=== PATIENT | male | born 1985 | race Caucasian/White ===

== ENCOUNTER 2022-10-25 23:06 | Emergency (ER) | payer OTHER, SELFPAY ==
[2022-10-25 23:09] VITALS: BP 129/83; PULSE 93; RESP 13; TEMP 36.5; O2SAT 95
--- NOTE | 2022-10-25 23:14 | ED.ALCOHOL ---
HPI - Alcohol General Chief Complaint: Overdose Stated Complaint: Possible Overdose Source: patient, EMS and RN notes reviewed Mode of arrival: EMS Limitations: no limitations History of Present Illness HPI narrative: Patient states he had been drinking and then decided he wanted to get high smokes some marijuana but thinks that may have been meth placed in it. Apparently law enforcement gave him some Narcan with no response. complaint: alcohol intoxication Last drink: just GREASE MAN Related Data Home Medications Medication Instructions Recorded Confirmed No Home Medications 10/26/22 10/26/22 Allergies Allergy/AdvReac Type Severity Reaction Status Date / Time No Known Allergies Allergy Verified 10/25/22 23:14 Review of Systems Review of Systems: ROS unobtainable: Yes unobtainable due to medical condition PMFSH Past Medical History Medical History Bipolar disorder (11/21/16) Social History Social History Smoking status: Current every day smoker Exam Const: General: healthy appearing and ill appearing acutely Nutritional Appearance: well nourished Limitations: altered mental status ( Appears intoxicated) HENMT: Head: normal to inspection Ears: external ears normal Face/Nose/Sinus: Normal external nose present Face and sinus: normal facial exam Mouth: Yes moist mucous membranes Eyes: Conjunctivae: conjunctivae normal Pupils: Equal, round and reactive pupils present EOM: EOMs intact bilaterally Neck: Neck: normal visual inspection Resp: Effort & Inspection: normal respiratory effort Auscultation: clear to auscultation bilaterally Cardio: Rate: regular rate Rhythm: regular rhythm GI: GI Palp: Yes Soft to palpation and No Tenderness to palpation present (GI) Auscultation: normal bowel sounds Back/Spine/Pelvis: Cervical Spine: cervical ROM normal Thoracic/Lumbar Spine: thoraco-lumbar ROM normal Skin: General skin exam: normal color Rashes: no rashes Neuro: General: moves all extremities, no focal motor deficits and CN's II-XI intact bilaterally Speech: Abnormal speech present ( intoxicated) Details: slurred Extrem: General: normal to inspection and no clubbing, cyanosis or edema Psych: Attitude: cooperative Course Course Emergency Course: patient temporarily eloped and the police were called due to him being intoxicated in unsafe to be walking the streets in the middle of the night. He was eventually found brought back by police. Family is now willing to take him home. Vital Signs Vital signs: Vital Signs Temperature 36.5 C 10/25/22 23:09 Pulse Rate 93 10/25/22 23:09 Respiratory Rate 13 10/25/22 23:09 Blood Pressure 129/83 10/25/22 23:09 Pulse Oximetry 95 10/25/22 23:09 Oxygen Delivery Room Air 10/25/22 23:09 Temperature 36.5 C 10/25/22 23:09 Pulse Rate 84 10/26/22 00:33 Respiratory Rate 18 10/26/22 00:33 Blood Pressure 109/74 10/26/22 00:33 Pulse Oximetry 98 10/26/22 00:33 Oxygen Delivery Room Air 10/25/22 23:09 MDM - Alcohol Differential Diagnosis Differential diagnosis: Likely alcohol intoxication, alcohol withdrawal syndrome and other ( anemia, electrolyte abnormalities, drug abuse) Lab Data Attestation: I reviewed the patient's lab results. 10/25/22 23:35 10/25/22 23:35 Labs: Lab Results 10/25/22 10/25/22 Range/Units 00:07 23:35 WBC 15.9 H (4.8-10.8) K/mm3 RBC 4.54 L (4.70-6.10) M/mm3 Hgb 15.2 (14.0-18.0) g/dL Hct 44.5 (40.0-54.0) % MCV 98.0 (78.0-102.0) fL MCH 33.5 H (27.0-31.0) pg MCHC 34.2 (32.0-36.0) g/dL RDW 12.9 (11.6-14.4) % Plt Count 439 H (150-420) K/mm3 MPV 8.4 L (8.7-11.0) fl Immature Gran % (Auto) 0.5 H (0.0-0.0) % Neut % (Auto) 76.1 H (50.0-70.0) % Lymph % (Auto) 14.7 L (18.0-42.0) % [place] % (Auto) 7.2 (2.0-1
[2022-10-25 23:25] VITALS: RESP 16
--- NOTE | 2022-10-25 23:27 | PC.NURSE ---
Pt grandmother at bedside
[2022-10-25 23:30] VITALS: PULSE 98; RESP 18; O2SAT 95
[2022-10-25 23:42] LABS: Basophils Absolute Auto 0.06 K/mm3 (0.00-0.10); Basophils Percent Auto 0.4 % (0.0-1.0); Eosinophils Absolute Auto 0.18 K/mm3 (0.02-0.50); Eosinophils Percent Auto 1.1 % (1.0-6.0); Hematocrit 44.5 % (40.0-54.0); Hemoglobin 15.2 g/dL (14.0-18.0); Immature Granulocyte Absolute 0.08 K/mm3 (0.00-0.00); Immature Granulocyte Percent A 0.5 % (0.0-0.0); Lymphocytes Absolute Auto 2.34 K/mm3 (1.10-4.50); Lymphocytes Percent Auto 14.7 % (18.0-42.0); Mean Corpuscular HGB Conc 34.2 g/dL (32.0-36.0); Mean Corpuscular Hemoglobin 33.5 pg (27.0-31.0); Mean Platelet Volume 8.4 fl (8.7-11.0); Monocytes Absolute Auto 1.14 K/mm3 (0.10-0.90); Monocytes Percent Auto 7.2 % (2.0-11.0); Neutrophils Absolute Auto 12.1 K/mm3 (1.7-7.2); Neutrophils Percent Auto 76.1 % (50.0-70.0); Platelet Count Result 439 K/mm3 (150-420); Red Blood Count 4.54 M/mm3 (4.70-6.10); Red Cell Distribution Width 12.9 % (11.6-14.4); White Blood Count 15.9 K/mm3 (4.8-10.8)
--- NOTE | 2022-10-25 23:42 | PC.NURSE ---
Pt attempting to walk out of room stating I wanna leave. I just needed some water. I want to go. . Dr. Land aware
[2022-10-25 23:54] LABS: Acetaminophen < 2 ug/mL (10-30); Alanine Aminotransferase 25 U/L (16-63); Albumin Level 3.9 g/dL (3.4-5.0); Alkaline Phosphatase 62 U/L (46-116); Anion Gap 15 mmol/L (8-16); Aspartate Amino Transferase 22 U/L (15-37); Bilirubin,Total 0.3 mg/dL (0.00-1.00); Blood Urea Nitrogen 10 mg/dL (7-18); Calcium 8.5 mg/dL (8.5-10.1); Carbon Dioxide 24 mmol/L (21-32); Chloride 101 mmol/L (98-108); Estimated CRCL calculation 100 ml/min; Estimated Glomerular Filt Rate > 60; Ethanol 188 mg/dL (0-6); Glucose 110 mg/dL (70-99); Osmolality Calculated 290 mOsm/kg (285-295); Potassium 3.6 mmol/L (3.5-5.1); Sodium 140 mmol/L (136-145)
--- NOTE | 2022-10-25 23:54 | PC.NURSE ---
Pt repeating that he wants too leave. Dr. Land aware and states that pt can sign out AMA if his grandma agrees to be a sober ride for him. Pt grandma states that she will not take him until he gives a urine sample. Pt became increasingly agitated and repeatedly left his room looking for an exit. RN informed pt that he is not able to leave without a sober ride and pt states who's going to stop me . Pt then started wandering the department despite staff's multiple attempts to redirect him to his room. Dr. Land aware and [employer] called. Pt eloped out of a side door to the department at [id number]. Pt grandmother states well, I guess I will just take him home and left for the parking lot to find the patient. [employer] arrived to ED at [id number]. [employer] located pt in parking lot and walked him back in to the ED at 0000
--- NOTE | 2022-10-26 00:12 | PC.NURSE ---
Pt walked out of his room to the nursing station stating he was ready to leave. RN informed him that we are still waiting on lab results. Pt escorted back to room. Drink provided. No other requests at this time.
--- NOTE | 2022-10-26 00:13 | PC.NURSE ---
Pt family at bedside
[2022-10-26 00:19] LABS: Amphetamine Screen Urine Positive (Negative); Barbiturate Screen Urine Negative (Negative); Benzodiazepines Screen Urine Negative (Negative); Cannabinoid Screen Urine Positive (Negative); Cocaine Screen Urine Negative (Negative); Methadone Screen Urine Negative (Negative); Opiate Screen Urine Negative (Negative); Phencyclidine Screen Urine Negative (Negative)
--- NOTE | 2022-10-26 00:32 | PC.NURSE ---
This RN and Dr. Land at bedside to update pt and family on all test results with pt permission verbalized.
[2022-10-26 00:33] VITALS: BP 109/74; PULSE 84; RESP 18; O2SAT 98
== END 2022-10-26 00:38 | disposition home or self-care (01) ==
PROVIDERS: Emergency Provider Emergency Medicine; PCP Family Medicine
DX: F15.10 Other stimulant abuse, uncomplicated (principal); F10.10 Alcohol abuse, uncomplicated; F17.200 Nicotine dependence, unspecified, uncomplicated; Y90.9 Presence of alcohol in blood, level not specified
CPT/HCPCS: 36415; 80053; 80307; 85025; 99283

== ENCOUNTER 2023-12-06 23:49 | Observation (INO) | payer OTHER, SELFPAY ==
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
[2023-12-06 23:49] VITALS: BP 129/91; PULSE 97; RESP 18; TEMP 36.6; O2SAT 97
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
--- NOTE | 2023-12-07 00:05 | PC.NURSE ---
transported to ct via wheelchair
--- NOTE | 2023-12-07 00:19 | PC.NURSE ---
returned from ct
[2023-12-07 00:35] LABS: Basophils Absolute Auto 0.05 K/mm3 (0.00-0.10); Basophils Percent Auto 0.5 % (0.0-1.0); Eosinophils Absolute Auto 0.24 K/mm3 (0.02-0.50); Eosinophils Percent Auto 2.2 % (1.0-6.0); Hematocrit 40.6 % (40.0-54.0); Hemoglobin 14.2 g/dL (14.0-18.0); Immature Granulocyte Absolute 0.05 K/mm3 (0.00-0.00); Immature Granulocyte Percent A 0.5 % (0.0-0.0); Lymphocytes Absolute Auto 2.31 K/mm3 (1.10-4.50); Lymphocytes Percent Auto 21.4 % (18.0-42.0); Mean Corpuscular Hemoglobin 33.3 pg (27.0-31.0); Mean Corpuscular Volume 95.1 fL (78.0-102.0); Mean Platelet Volume 8.1 fl (8.7-11.0); Monocytes Absolute Auto 0.87 K/mm3 (0.10-0.90); Monocytes Percent Auto 8.1 % (2.0-11.0); Neutrophils Absolute Auto 7.27 K/mm3 (1.70-7.20); Neutrophils Percent Auto 67.3 % (50.0-70.0); Platelet Count Result 372 K/mm3 (150-420); Red Blood Count 4.27 M/mm3 (4.70-6.10); Red Cell Distribution Width 13.9 % (11.6-14.4); White Blood Count 10.8 K/mm3 (4.8-10.8)
[2023-12-07 00:49] LABS: Alanine Aminotransferase 28 U/L (16-63); Albumin Level 3.5 g/dL (3.4-5.0); Alkaline Phosphatase 59 U/L (46-116); Anion Gap 9 mmol/L (4-12); Aspartate Amino Transferase 36 U/L (15-37); Bilirubin,Total 0.3 mg/dL (0.00-1.00); Blood Urea Nitrogen 10 mg/dL (7-18); Calcium 8.1 mg/dL (8.5-10.1); Carbon Dioxide 26 mmol/L (21-32); Chloride 105 mmol/L (98-108); Creatine Kinase 535 U/L (39-308); Estimated CRCL calculation 113 ml/min; Estimated Glomerular Filt Rate > 60; Glucose 96 mg/dL (70-99); Osmolality Calculated 289 mOsm/kg (285-295); Potassium 3.7 mmol/L (3.5-5.1); Sodium 140 mmol/L (136-145); Total Protein 6.7 g/dL (6.4-8.2)
[2023-12-07 00:53] LABS: INR 1.1; Partial Thromboplastin Time 23.4 Sec (23.9-30.70); Prothrombin Time 11.9 Seconds (9.50-12.1)
[2023-12-07] MEDS: SODIUM CHLORIDE 0.9% IV 1,000 ML 999 ML IV CONT (00:53)
[2023-12-07] MEDS: KETOROLAC 30 MG/ML VIAL (*BKC) IV PUSH (00:53)
--- NOTE | 2023-12-07 01:21 | PC.NURSE ---
patient is resting quietly on stretcher. call light in reach. waiting on test results
--- NOTE | 2023-12-07 02:20 | PC.NURSE ---
Dr Harris at the bedside repairing laceration to left side of face.
[2023-12-07 02:59] VITALS: BP 120/76; PULSE 85; RESP 18; TEMP 37.1; O2SAT 96
[2023-12-07 03:22] VITALS: PULSE 80; RESP 18; O2SAT 99
[2023-12-07 03:30] VITALS: PULSE 80; RESP 18; O2SAT 99
[2023-12-07] MEDS: SODIUM CHLORIDE 0.9% IV 1,000 ML 100 ML IV CONT (03:30)
[2023-12-07 03:34] VITALS: BMI 23.5
[2023-12-07] MEDS: MORPHINE SULFATE (*CRX) 2 MG/ML INJ IV PUSH ×2 (03:56→08:13)
--- NOTE | 2023-12-07 04:15 | ADMGEN ---
This patient, Mumtaz Salomon, was admitted for 23 hr obs. to 2nd Floor Room 209-1. Patient/family oriented to hospital policies and general routines including ID bracelet, bed and alarms, visiting hours, pain management, procedures, bathroom and other care routines, personal items, smoking policy, room service/diet, and visiting hours. Information on how to activate the Rapid Response Team has been discussed. Patient/Family are encouraged to report perceived risks to care and to ask questions if they do not understand what they are told or what they should do.
[2023-12-07 05:56] LABS: Appearance Urine Clear (Clear); Bilirubin Urine Negative (Negative); Color Urine Yellow (Yellow); Glucose Urine UA Negative (Negative); Ketones Urine Trace (Negative); Leukocyte Esterase Ur Negative LEU/UL (Negative); Nitrate Urine Negative (Negative); Protein Urine 2+ (Negative); Specific Grav Ur >= 1.030 (1.010-1.020); Urobilinogen Urine 0.2 mg/dL (0.2-1.0)
[2023-12-07 06:09] LABS: Alanine Aminotransferase 25 U/L (16-63); Alkaline Phosphatase 51 U/L (46-116); Anion Gap 7 mmol/L (4-12); Aspartate Amino Transferase 34 U/L (15-37); Bilirubin,Total 0.3 mg/dL (0.00-1.00); Blood Urea Nitrogen 10 mg/dL (7-18); Calcium 7.5 mg/dL (8.5-10.1); Carbon Dioxide 25 mmol/L (21-32); Chloride 107 mmol/L (98-108); Creatine Kinase 504 U/L (39-308); Estimated CRCL calculation 136 ml/min; Estimated Glomerular Filt Rate > 60; Glucose 100 mg/dL (70-99); Osmolality Calculated 287 mOsm/kg (285-295); Potassium 3.9 mmol/L (3.5-5.1); Sodium 139 mmol/L (136-145); Total Protein 5.9 g/dL (6.4-8.2)
[2023-12-07 06:11] LABS: Blood Urine Trace-Lysed (Negative)
[2023-12-07 06:12] LABS: Add Urine Microscopic? YES; Amorphous Sediment Urine Few; Mucus Urine Heavy /lpf; RBC Urine None seen /hpf (0-2)
[2023-12-07 07:51] VITALS: BP 127/87; PULSE 64; RESP 18; TEMP 36.5; O2SAT 98
--- NOTE | 2023-12-07 11:19 | PC.NURSE ---
Patient starting to talk about going AMA.
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
[2023-12-07] MEDS: IBUPROFEN 600 MG TABLET PO (12:43)
[2023-12-07] MEDS: ACETAMINOPHEN 500 MG TABLET 1000 MG PO (12:43)
--- NOTE | 2023-12-07 13:00 | PC.NURSE ---
Patient given discharge instructions and voiced understanding. Patient left unit in w/c accompanied by nurse and left hospital grounds on foot. Patient took personal clothing and shoes with him.
--- NOTE | 2023-12-10 11:16 | PC.NURSE ---
Unable to complete dc call back, no valid phone number
== END 2023-12-07 13:00 | disposition home or self-care (01) ==
LOC: CHSED 12-07 02:30 → CHS2ND 12-07 03:01
PROVIDERS: Admitting Provider Internal Medicine; Emergency Provider Emergency Medicine; PCP Family Medicine; Visit Provider Internal Medicine
DX: S06.0X0A Concussion without loss of consciousness, initial encounter (principal); S02.2XXA Fracture of nasal bones, initial encounter for closed fracture; S01.81XA Laceration without foreign body of other part of head, initial encounter; S05.12XA Contusion of eyeball and orbital tissues, left eye, initial encounter; Y04.2XXA Assault by strike against or bumped into by another person, initial encounter; F17.210 Nicotine dependence, cigarettes, uncomplicated; F12.90 Cannabis use, unspecified, uncomplicated
CPT/HCPCS: 12011; 36415; 70450; 70486; 72125; 80053; 81001; 82550; 85025; 85610; 85730; 96361; 96374; 96375; 96376; 99285; A9270; G0378; G0379; J1885; J2270; J7030

== ENCOUNTER 2024-10-13 17:02 | Emergency (ER) | payer OTHER, SELFPAY ==
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
[2024-10-13 17:04] VITALS: BP 140/93; PULSE 101; RESP 16; TEMP 37.3; O2SAT 100
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
--- OUTSIDE RECORDS SUMMARY | 2024-10-13 17:49 | XMS_ITS | Clinical Summary ---
Author Organization [facility] Address [facility] [place] [address] Care Team Providers Care Dry Finisher Name Role Phone Cyndiemelinda Uzair Brown BACK TACKER Primary Care Provi dona Allergies No known active allergies Medications No known medications Active Problems Problem Noted Date Diagnosed Date Foreign body of left ring finger 08/14/2023 Immunizations Immunization Administration Dates Next Due Tdap (Boostrix) 07/28/2023 Social History Tobacco Use Types Packs/Day Years Used Date Smoking Tobacco: Some Days Cigarettes Smokeless Tobacco: Never Tobacco Cessation:Ready to Q uit: Not Asked; Counseling Given: Not Answered Alcohol Use Standard Drinks/Week Comments Yes 0 (1 standard drink = 0.6 oz pur e alcohol) Sex and Gender Information Value Date Recorded Sex Assigned at Not on file Legal Sex Male 6:11 PM CDT Gender Identity Not on file Sexual Orientation Not on file Last Filed Vital Signs Vital Sign Reading Time Taken Comments Blood Pressure 120/60 12/18/2023 8:00 AM CDT Pulse 66 12/18/2023 8:00 AM CDT Temperature 36.9 C (98.5 F) 12/18/2023 6:31 AM CDT Respiratory Rate 18 12/18/2023 8:00 AM CDT Oxygen Saturation 98% 12/18/2023 8:00 AM CDT Inhaled Oxygen Concentration - - Weight 74.8 kg (165 lb) 12/18/2023 6:31 AM CDT Height 182.9 cm (6') 12/18/2023 6:31 AM CDT Body Mass Index 22.38 12/18/2023 6:31 AM CDT Plan of Treatment Health Maintenance Due Date Last Done Comments Annual Physical 09/30/1987 Hepatitis C 2002 Pneumococcal Vaccine: Pediatrics (0 to 5 Years) and At-Risk Patients (6 to 49 Years) (1 of 2 - PCV) 09/30/2003 COVID-19 Vaccine (1 - 2023-25 season) 2024 DTaP, Tdap and Td Vaccines (7 - Td or Tdap) 07/28/2033 07/28/2023, 02/09/1999, 01/08/1989, Additional history exists Hepatitis B Vaccines Completed 08/08/1999, 03/13/1999, 02/09/1999 HPV Vaccines Aged Out No longer eligi ble based on patient's age to complete this topic Meningococcal B Vaccine Aged Out No l onger eligible based on patient's age to complete this topic Meningococcal Vaccine Aged Out No andrew delfina eligible based on patient's age to complete this topic RSV Immunizations Under 20 Months Aged Out No longer eligible based on patient's age to complete this topic Insurance [employer] Care Teams Dry Finisher Relationship Specialty Start Date End Date Uzair Light NP [address] [place] [id number] PCP - General Nurse Practitioner Family 02/13/22
--- OUTSIDE RECORDS SUMMARY | 2024-10-13 17:49 | XMS_ITS | Encounter Summary ---
Author Organization [facility] Address [facility] [place] [address] Care Team Providers Care Armature Winder Name Role Phone New Referring, Provider Primary Care Provider Un available Uzair Light NP Primary Care Provi dona Encounter Details Date Type Department Care Team (Late st Contact Info) Description 11/21/2018 Abstract [facility] CONVERSION [address] [place] [address] , Generic Conversion, Social History Tobacco Use Types Packs/Day Years Used Date Smoking Tobacco: Never Assessed Sex and Gender Information Value Date Recorded Sex Assigned at Not on file Legal Sex Male 6:11 PM CDT Gender Identity Not on file Sexual Orientation Not on file documented as of this encounter Plan of Treatment Not on file documented as of this encounter Visit Diagnoses Not on filedocumented in this encounter Care Teams Armature Winder Relationship Specialty Start Date End Date New Referring, Provider PCP - General UNKNOWN PHYSICIAN SPECIALTY 11/26/18 02/12/22 Uzair Light NP [address] [place] [id number] PCP - General Nurse Practitioner Family 02/13/22 documented as of this encounter
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
--- NOTE | 2024-10-13 17:55 | PC.NURSE ---
Sekou moon here to talk with pt. pt wanting to go outside to smoke.
[2024-10-13 18:57] VITALS: BP 146/95; PULSE 89; RESP 18; TEMP 37.1; O2SAT 99
== END 2024-10-13 19:06 | disposition home or self-care (01) ==
PROVIDERS: Emergency Provider Internal Medicine Critical Care Medicine; PCP Family Medicine
DX: S01.21XA Laceration without foreign body of nose, initial encounter (principal); S01.312A Laceration without foreign body of left ear, initial encounter; S01.01XA Laceration without foreign body of scalp, initial encounter; Y04.2XXA Assault by strike against or bumped into by another person, initial encounter; F17.210 Nicotine dependence, cigarettes, uncomplicated
CPT/HCPCS: 12013; 70450; 70486; 72125; 99284